=== PATIENT | male | born 1990 | race Caucasian/White ===

== ENCOUNTER 2021-03-11 08:01 | Emergency (ER) | payer OTHER, SELFPAY ==
[2021-03-11 08:22] VITALS: BP 143/85; PULSE 115; RESP 16; TEMP 37.1; O2SAT 100; BMI 23.3
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
[2021-03-11] MEDS: Lidocaine/Epineph/Tetracaine 3 ML GEL.PF.APP TOPICAL (08:36)
--- NOTE | 2021-03-11 09:16 | PC.NURSE ---
Dr. Rivas at bedside suturing laceration. Pt denies pain/discomfort at this time.
== END 2021-03-11 09:26 | disposition home or self-care (01) ==
PROVIDERS: Emergency Provider Emergency Medicine
DX: S01.411A Laceration without foreign body of right cheek and temporomandibular area, initial encounter (principal); S00.81XA Abrasion of other part of head, initial encounter; S09.90XA Unspecified injury of head, initial encounter; Y04.2XXA Assault by strike against or bumped into by another person, initial encounter; Y93.9 Activity, unspecified; Y92.019 Unspecified place in single-family (private) house as the place of occurrence of the external cause; Y99.9 Unspecified external cause status
CPT/HCPCS: 12011; 99284

== ENCOUNTER 2021-07-28 15:52 | Inpatient (IN) | payer OTHER, SELFPAY ==
[2021-07-28] VITALS (8 sets, daily range): BP systolic 109–146; BP diastolic 57–104; PULSE 101–163; RESP 14–36; TEMP 36.4–39.2; O2SAT 95–98; BMI 24.0
--- NOTE | ~2021-07-28 | XR_ITS ---
EXAMINATION: XR CHEST CLINICAL INFORMATION: Chest pain, rule out aspiration pneumonia. COMPARISON: 10/07/2019 chest radiographs. TECHNIQUE: Frontal view of the chest was obtained. FINDINGS: Diffuse hazy opacification and patchy opacities are seen in the left lung. The right lung is clear. The heart and mediastinal structures are unremarkable. No significant midline shift is seen. XR/XR chest 1V IMPRESSION: Generalized hazy and patchy opacities in the left lung suggesting an infectious/inflammatory process.
--- NOTE | ~2021-07-28 | CT_ITS ---
EXAMINATION: CT HEAD WITHOUT CONTRAST CLINICAL INFORMATION: Altered mental status, agitation. COMPARISON: None TECHNIQUE: Contiguous axial imaging was performed from the skull base to vertex without intravenous administration of contrast. This CT examination was performed using dose optimization techniques as appropriate, variously including the following: *Automated exposure control *Adjustment of mA and/or kV according to patient size (this includes techniques or standardized protocols for targeted exams where dose is matched to indication/reason for exam; i.e. extremities or head) *Use of iterative reconstruction technique DLP: 727 mGy-cm FINDINGS: Examination is limited by motion. There is no evidence of acute intracranial hemorrhage or territorial infarction. No abnormal mass effect or midline shift is seen. Kelly to white matter differentiation is well preserved. No extra-axial fluid collections are identified. There is a 1.4 cm extra-axial hyperdensity anterior to the left cerebellum on image 27:3 which could be artifactual and related with volume averaging from motion, although a meningioma is not entirely excluded. The ventricles are normal in size. The osseous structures and soft tissues are normal. Large mucous retention cyst in the left maxillary sinus. Remaining of the paranasal sinuses and mastoids are clear. CT/CT head/brain wo con IMPRESSION: No acute intracranial pathology. Questionable meningioma in the left posterior fossa, although examination is significantly degraded by motion and this could represent volume averaging. Consider further evaluation with a MR of the brain in a nonemergent setting.
[2021-07-28] MEDS: Ketamine HCl 500 MG/5 ML VIAL 250 MG IM ×2 (16:11→16:25)
[2021-07-28] MEDS: LORazepam 2 MG/ML VIAL IM ×2 (16:17→16:45)
--- NOTE | 2021-07-28 16:22 | ECG_ITS ---
Test Reason : OVERDOSE Blood Pressure : / mmHG Vent. Rate : 145 BPM Atrial Rate : 145 BPM P-R Int : 142 ms QRS Dur : 090 ms QT Int : 262 ms P-R-T Axes : 076 075 009 degrees QTc Int : 406 ms Sinus tachycardia Possible Left atrial enlargement ST & T wave abnormality, consider inferior ischemia Abnormal ECG No previous ECGs available Referred By: Jose Zamorano Electronically Signed By:NITISH MARINO MD
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
[2021-07-28] MEDS: Haloperidol Lactate 5 MG/ML VIAL IM (16:32)
--- NOTE | 2021-07-28 16:36 | PC.NURSE ---
Pt extremely restless and anxious and unable to sit still in bed. Pt is pale and diaphoretic. Pt very tangential with his speech. With security, attempted to get the patient settled and redirected. However, as soon as they left the room, pt contorted his body and flung himself off and under the bed. Pt has a small abrasion noted on left upper extremity. Security immediately brought back to bedside for physical restraints. Pt placed in restraints and pt has been medicated with multiple IM medications. Pt is on cardiac monitoring and is tachycardic to 150. IV established in right hand
[2021-07-28] MEDS: 0.9 % Sodium Chloride 1,000 ML 999 ML IV ×3 (16:42→19:35)
--- NOTE | 2021-07-28 16:59 | PC.NURSE ---
Pt becoming increasingly more sedated, but remains in the restraints at this time. EtCO2 = 34. Pt placed on oxygen via NC at 2lpm for noted spo2 of 91% and it immediately improved to 96%. Pt has fluids infusing. Pt is under constant observation.
[2021-07-28 17:08] LABS: MANUAL DIFF FLAG NO
[2021-07-28 17:09] LABS: Basophils Percent Auto 0.2 % (0-2); Eosinophils Absolute Auto 0.1 X10*3/uL (0.0-0.4); Eosinophils Percent Auto 0.8 % (0-4); Hematocrit 38.2 % (42-52); Hemoglobin 12.9 g/dl (14.0-18.0); Imm Gran Abs Auto 0.03 X10*3/uL (0.00-0.03); Imm Gran Pct Auto 0.3 % (0.0-0.4); Lymphocytes Absolute Auto 2.1 X10*3/uL (1.2-4.9); Lymphocytes Percent Auto 23.3 % (20-40); Mean Corpuscular HGB Conc 33.8 g/dl (31.0-36.0); Mean Corpuscular Hemoglobin 29.1 pg (27.0-33.0); Mean Corpuscular Volume 86.2 fL (80-98); Mean Platelet Volume 9.5 fL (9.4-12.4); Monocytes Absolute Auto 0.6 X10*3/uL (0.1-1.2); Monocytes Percent Auto 6.6 % (2-11); Neutrophils Percent Auto 68.8 % (45-73); Platelet Count 251 X10*3/uL (160-400); Red Blood Count 4.43 X10*6/uL (4.60-5.80); Red Cell Distribution Width 13.3 % (11.0-16.0); White Blood Count 8.8 X10*3/uL (4.8-10.8)
[2021-07-28 17:29] LABS: Alanine Aminotransferase 14 U/L (0-40); Albumin Level 4.6 g/dL (3.5-5.0); Alkaline Phosphatase 83 U/L (39-117); Anion Gap 26 (12-20); Aspartate Amino Transferase 26 U/L (5-37); Bilirubin Total 0.4 mg/dL (0.0-1.0); Blood Urea Nitrogen 14 mg/dL (9-16); Calcium 9.2 mg/dL (8.4-10.2); Carbon Dioxide 13 mmol/L (22-29); Chloride 101 mmol/L (96-108); Estimated Glomerular Filt Rate 51; Glucose Random 287 mg/dL (60-115); Potassium 3.9 mmol/L (3.3-5.1); Sodium 136 mmol/L (135-145); Total Protein 7.6 g/dL (6.5-8.0); Troponin-I High Sensitivity < 3.5 ng/L (<3.5-35.0)
[2021-07-28 18:39] LABS: Magnesium 2.5 mg/dL (1.6-2.6)
[2021-07-28 18:40] LABS: VBG Base Excess -1.4 mmol/L; VBG HCO3 23 mmol/L (22-26); VBG pCO2 37 mmHg; VBG pH 7.39 (7.32-7.43); VBG pO2 114 mmHg
[2021-07-28 18:43] LABS: Venous Blood Gas Refer to POC result
[2021-07-28 18:50] LABS: Acetone, serum QL Negative (Negative)
[2021-07-28 18:51] LABS: Ethanol < 10 mg/dL
[2021-07-28 18:52] LABS: COVID-19 Test Negative (Negative)
--- NOTE | 2021-07-28 18:53 | PHA.MEDREC ---
Pharmacy Consult ? Medication Reconciliation Pharmacy has completed the medication reconciliation.Unable to get any information regarding home meds from the patient. Contacted patients mother and she does not think he is taking any prescribed medications.
[2021-07-28 18:54] LABS: Acetaminophen LAB < 1 mcg/mL (<30); Amphetamine Screen Urine POSITIVE (Not Detect); Barbiturates, Urine Not Detected (Not Detect); Benzodiazepines Screen Urine Not Detected (Not Detect); Cannabinoid Screen Urine POSITIVE (Not Detect); Cocaine Screen Urine Not Detected (Not Detect); Fentanyl, urine Not Detected (Not Detect); Opiate Screen Urine Not Detected (Not Detect); Phencyclidine Screen Urine POSITIVE (Not Detect); Salicylate < 5.0 mg/dL (15-30)
--- NOTE | 2021-07-28 19:13 | PC.NURSE ---
Patient with easily arousable with incomprehensible speech. Remains in 2 point restraints at his time, was initially trying to get out of bed when this RN entered room. 1:1 present with patient.
[2021-07-28] MEDS: LORazepam 2 MG/ML VIAL IVPUSH (19:30)
--- NOTE | 2021-07-28 19:32 | PC.NURSE ---
Medicated with ativan to try and allow patient to cooperate for CT.
--- NOTE | 2021-07-28 19:53 | PC.NURSE ---
Patient unable to go to CT. flailing legs in air, attempting to pull out catheter at this time. 1:1 maintained.
[2021-07-28] MEDS: 0.9 % Sodium Chloride 1,000 ML 250 ML IVCONT (22:47)
[2021-07-28] MEDS: Acetaminophen Supp 650 MG SUPP.RECT PR (23:31)
--- NOTE | 2021-07-28 23:34 | PM.IMHP ---
History of Present Illness Date of Service: 07/28/21 Chief Complaint: Pattern nausea 31-year-old male with a past medical history of polysubstance abuse, PCP abuse presented to the hospital with a chief complaint of altered mental status. Most of the history provided by the patient's family. Reportedly patient has been having paranoia; and confusion. Mentioned that he uses PCP. Denies patient having any suicidal or homicidal ideation. Review of all other systems is negative except mentioned above ER course: Per ER team patient on presentation was agitated; given ketamine, Ativan, Haldol; subsequently patient developed fever; noted to be tachycardic, hypotensive; noted to have mild TORSTEN and rhabdomyolysis; given IV fluids. Chest x-ray showed pneumonia. Concern for aspiration. Given vancomycin and Zosyn. Admitted for further management. [facility] Medical History No known health problems Pertinent family history: Reviewed Social History (Updated 03/11/21 @ 08:34 by Caitlin Dillard DO) Patient Tobacco Use Status: Never used Tobacco Use of substances other than those prescribed or required for medical reasons: Yes Substance Use Type: Marijuana Advance Directives: No Advance Directives Information Provided: No Meds Allergies Allergy/AdvReac Type Severity Reaction Status Date / Time No Known Allergies Allergy Verified 03/11/21 08:25 Active Medications: Current Medications Albuterol/Ipratropium (Albuterol/Iprat 2.5/0.5mg 3 Ml Ampul.Neb) 3 ml INHALE RQ4H PRN PRN Reason: Shortness of Breath/Wheezing Vancomycin HCl 750 mg/ Sodium (Chloride) 265 mls @ 265 mls/hr IV ONCE ONE Stop: 07/29/21 00:28 Pharmacy Consult (Consult Rx Perform Med Rec) 1 each MISCELLANE ONCE PRN PRN Reason: Consult order Pharmacy Consult (Consult Rx Vancomycin Dosing) 1 each MISCELLANE DAILY PRN PRN Reason: Consult order Home Medications Medication Instructions Recorded Confirmed Last Taken Type No Known Home Meds 07/28/21 07/28/21 Unknown History Physical Exam Vital Signs and Narrative: Vital Signs: Last Vital Signs Temp 102.5 F H 07/28/21 23:25 Pulse 137 H 07/28/21 23:25 Resp 34 H 07/28/21 23:25 BP 146/104 H 07/28/21 23:25 Pulse Ox 98 07/28/21 23:25 Body Mass Index 24.0 Gen: Appears be in no acute distress HEENT: NCAT, Moist mucosa. Pulmonary: Course breath sounds, fair air entry CVS: Normal S1-S2 Abdomen: BS+, Soft, Nontender Extremities: Warm well perfused Neuro: Alert and awake. Results Labs CBC and Chem 7: 07/28/21 17:04 07/28/21 17:04 Labs: Laboratory Results - last 24 hr 07/28/21 07/28/21 07/28/21 17:04 17:04 17:04 MCV 86.2 MCH 29.1 MCHC 33.8 RDW 13.3 Plt Count 251 MPV 9.5 Immature Gran % (Auto) 0.3 Neut % (Auto) 68.8 Lymph % (Auto) 23.3 [place] % (Auto) 6.6 Eos % (Auto) 0.8 Baso % (Auto) 0.2 Lymph # (Auto) 2.1 [place] # (Auto) 0.6 Eos # (Auto) 0.1 Baso # (Auto) 0.0 Abs Immat Gran (auto) 0.03 Absolute Neuts (auto) 6.0 Absolute Nucleated RBC 0.000 Nucleated RBC % (auto) 0.0 VBG pH VBG pCO2 VBG pO2 VBG HCO3 VBG O2 Saturation VBG Base Excess Anion Gap 26 H Estim Creat Clear Calc 56.0 Estimated GFR 51 Random Glucose 287 H Calcium 9.2 Magnesium 2.5 Total Bilirubin 0.4 AST 26 ALT 14 Alkaline Phosphatase 83 Total Creatine Kinase 803 H Troponin I High Sens < 3.5 Total Protein 7.6 Albumin 4.6 Salicylates Urine Opiates Screen Urine Fentanyl Screen Acetaminophen Ur Barbiturates Screen Ur Phencyclidine Scrn Ur Amphetamines Screen U Benzodiazepines Scrn Urine Cocaine Screen U Marijuana (THC) Screen Ethyl Alcohol Acetone, Qual COVID-19 ([facility]) COVID-19 Clin Com 07/28/21 07/28/21 07/28/21 18:24 18:24 18:24 MCV MCH MCHC RDW Plt Count MPV Immature Gran % (Auto) Neut % (Auto) Lymph % (Auto) [place] % (Auto) Eos % (Auto) Baso % (Auto) Lymph # (Auto) [place] # (Auto) Eos # (Auto) Baso # (Auto) Abs Immat Gran (auto) Absolute Neuts (auto) Absolute Nucleated RBC Nucleated RBC % (auto) VBG pH VBG pCO2 VBG pO2 VBG HCO3 VBG O2 Saturation VBG Base Excess Anion Gap Estim Creat Clear Calc Estimated GFR Random Glucose Calcium Magnesium Total Bilirubin AST ALT Alkaline Phosphatase Total Creatine Kinase Troponin I High Sens Total Protein Albumin Salicylates < 5.0 L Urine Opiates Screen Not Detected Urine Fentanyl Screen Not Detected Acetaminophen < 1 Ur Barbiturates Screen Not Detected Ur Phencyclidine Scrn POSITIVE H Ur Amphetamines Screen POSITIVE H U Benzodiazepines Scrn Not Detected Urine Cocaine Screen Not Detected U Marijuana (THC) Screen POSITIVE H Ethyl Alcohol < 10 Acetone, Qual Negative COVID-19 ([facility]) COVID-[employer]amer (TMG) 07/28/21 07/28/21 18:25 18:34 MCV MCH MCHC RDW Plt Count MPV Immature Gran % (Auto) Neut % (Auto) Lymph % (Auto) [place] % (Auto) Eos % (Auto) Baso % (Auto) Lymph # (Auto) [place] # (Auto) Eos # (Auto) Baso # (Auto) Abs Immat Gran (auto) Absolute Neuts (auto) Absolute Nucleated RBC Nucleated RBC % (auto) VBG pH 7.39 VBG pCO2 37 VBG pO2 114 VBG HCO3 23 VBG O2 Saturation 99.0 VBG Base Excess -1.4 Anion Gap Estim Creat Clear Calc Estimated GFR Random Glucose Calcium Magnesium Total Bilirubin AST ALT Alkaline Phosphatase Total Creatine Kinase Troponin I High Sens Total Protein Albumin Salicylates Urine Opiates Screen Urine Fentanyl Screen Acetaminophen Ur Barbiturates Screen Ur Phencyclidine Scrn Ur Amphetamines Screen U Benzodiazepines Scrn Urine Cocaine Screen U Marijuana (THC) Screen Ethyl Alcohol Acetone, Qual COVID-19 ([facility]) Negative COVID-[employer]Mobile[employer]amer (TMG) See Note Imaging Radiologist's Impressions: Impressions Head CT 07/28/21 18:00 IMPRESSION: No acute intracranial pathology. Questionable meningioma in the left posterior fossa, although examination is significantly degraded by motion and this could represent volume averaging. Consider further evaluation with a MR of the brain in a nonemergent setting. Chest X-Ray 07/28/21 22:38 IMPRESSION: Generalized hazy and patchy opacities in the left lung suggesting an infectious/inflammatory process. Assessment and Plan (1) Altered mental status: Status: Acute (2) Substance abuse: Status: Acute (3) Acute kidney injury: Status: Acute (4) Tachycardia: Status: Acute (5) Rhabdomyolysis: Status: Acute (6) Pneumonia: Qualifiers: Laterality: left Lung location: unspecified part of lung Pneumonia type: due to unspecified organism Qualified Code(s): J18.9 - Pneumonia, unspecified organism Status: Acute (7) PCP intoxication: Qualifiers: Complication of substance-induced condition: with delirium Qualified Code(s): F16.921 - Hallucinogen use, unspecified with intoxication with delirium Status: Acute (8) Metabolic acidosis: Status: Acute 31-year-old male with a past medical history of polysubstance abuse, PCP abuse presented to the hospital with a chief complaint of altered mental status. Delirium: In the setting of substance abuse/PCP intoxication. Patient was initially agitated and throwing out of the bed in the ER, received ketamine, Haldol, Ativan-subsequently calmed down. Will consult Psychiatry. Polysubstance abuse: Addiction Medicine consult. Patient's U tox positive for phencyclidine, amphetamines, cannabis Pneumonia: Concern for aspiration. Continue vancomycin and Zosyn. Tachycardia: In the setting of substance abuse/pneumonia/agitation. Monitor on telemetry. TORSTEN: Gentle IV fluids. Monitor renal function. Rhabdomyolysis: Patient on IV fluids Metabolic acidosis: Lactate pending. Send UA for ketones. Repeat BMP pending after IV hydration. DVT prophylaxis: SCD boots Code status: Full code. Discussed with the patient's family at bedside. Quality Stroke Does the patient have a stroke diagnosis?: No VTE Prior VTE?: No VTE Risk Level:: Medical - low VTE Device Contraindication: N/A - Device Ordered VTE Drug Contraindication: Treatment Not Indicated
[2021-07-28] MEDS: Piperacillin Sodium/Tazobactam 3.375 GM in 0.9 % Sodium Chloride 50 ML IV (23:36)
[2021-07-28 23:48] LABS: Lactic Acid 1.8 mmol/L (0.5-2.0)
[2021-07-29] VITALS (9 sets, daily range): BP systolic 92–122; BP diastolic 57–71; PULSE 76–121; RESP 15–30; TEMP 37.1–39.1; O2SAT 95–100
[2021-07-29 00:11] LABS: Anion Gap 13 (12-20); Blood Urea Nitrogen 10 mg/dL (9-16); Calcium 8.1 mg/dL (8.4-10.2); Carbon Dioxide 20 mmol/L (22-29); Chloride 108 mmol/L (96-108); Creatinine Clr Calc Pharmacy 97.4; Estimated Glomerular Filt Rate > 60; Glucose Random 87 mg/dL (60-115); Potassium 4.3 mmol/L (3.3-5.1); Sodium 137 mmol/L (135-145)
[2021-07-29] MEDS: vancomycin HCL 1,000 MG in 0.9 % Sodium Chloride 250 ML 270 MG IV (00:48)
[2021-07-29 01:02] LABS: Appearance Urine CLEAR; Color Urine YELLOW; Glucose Urine UA NEG (NEG); Leukocyte Esterase Urine NEG (NEG); Nitrite Urine NEG (NEG); Urine Blood 2+ (NEG); Urine Ketones NEG (NEG); Urine Protein NEG (NEG-TRACE)
[2021-07-29 02:15] LABS: Bacteria Urine 1+ /LPF; Squamous Epithelial Cell Urine 1+ /LPF
[2021-07-29] MEDS: 0.9 % Sodium Chloride 1,000 ML 100 ML IVCONT ×3 (03:19→18:09)
--- NOTE | 2021-07-29 03:21 | PC.NURSE ---
Report taken from [place], this RN resuming . Pt remains asleep in bed at this time, stirs slightly with movement. VSS. IVF infusing per MAR @ 100 ml/hr. 1250 ml of UO drained from kurtz bag and documented. Tele monitor in place for pt safety. SZ pads in place. lights dim for comfort. Continue to monitor.
[2021-07-29] MEDS: Piperacillin Sodium/Tazobactam 3.375 GM in 0.9 % Sodium Chloride 50 ML IV ×4 (05:07→23:01)
[2021-07-29 07:27] LABS: MANUAL DIFF FLAG NO
[2021-07-29 07:29] LABS: Basophils Percent Auto 0.3 % (0-2); Eosinophils Absolute Auto 0.1 X10*3/uL (0.0-0.4); Eosinophils Percent Auto 0.7 % (0-4); Hematocrit 36.2 % (42-52); Hemoglobin 12.4 g/dl (14.0-18.0); Imm Gran Abs Auto 0.04 X10*3/uL (0.00-0.03); Imm Gran Pct Auto 0.3 % (0.0-0.4); Lymphocytes Absolute Auto 3.1 X10*3/uL (1.2-4.9); Lymphocytes Percent Auto 23.2 % (20-40); Mean Corpuscular HGB Conc 34.3 g/dl (31.0-36.0); Mean Corpuscular Hemoglobin 29.7 pg (27.0-33.0); Mean Corpuscular Volume 86.6 fL (80-98); Mean Platelet Volume 9.4 fL (9.4-12.4); Monocytes Absolute Auto 0.6 X10*3/uL (0.1-1.2); Monocytes Percent Auto 4.8 % (2-11); Neutrophils Absolute Auto 9.3 X10*3/uL (2.0-8.3); Neutrophils Percent Auto 70.7 % (45-73); Platelet Count 200 X10*3/uL (160-400); Red Blood Count 4.18 X10*6/uL (4.60-5.80); Red Cell Distribution Width 13.5 % (11.0-16.0); White Blood Count 13.2 X10*3/uL (4.8-10.8)
[2021-07-29 08:08] LABS: Anion Gap 13 (12-20); Blood Urea Nitrogen 7 mg/dL (9-16); Calcium 8.1 mg/dL (8.4-10.2); Carbon Dioxide 20 mmol/L (22-29); Chloride 110 mmol/L (96-108); Creatinine Clr Calc Pharmacy 106.6; Estimated Glomerular Filt Rate > 60; Glucose Random 77 mg/dL (60-115); Potassium 4.4 mmol/L (3.3-5.1); Sodium 139 mmol/L (135-145)
--- NOTE | 2021-07-29 08:19 | PHA.PROG ---
Admission Date/Time: July 28, 2021 23:31 Indication: Resp Infection Weight in k.503 kg Adjusted body weight in K.92 [place] body weight in K.2 Obesity Dosing Indication % IBW: N/A Serum Creatinine - Last 168 Hours 07/28/21 07/28/21 07/29/21 17:04 23:22 07:10 Creatinine 1.60 H 0.92 0.84 Estimated CrCl and GFR - Last 168 Hours 07/28/21 07/28/21 07/29/21 17:04 23:22 07:10 Estim Creat Clear Calc 56.0 97.4 106.6 Estimated GFR 51 > 60 > 60 Vancomycin Loading Dose: N/A - will given first 2 dose of vanco 8 hours apart instead of 12 to create a LD so concentration level increase faster Current Vancomycin Dosing Regimen: 1000 mg Q12H Date and Time for next Vancomycin Level to be drawn: 07/30 @ 0800 Pharmacist Comments on Vancomycin Plan: First dose 1000 mg given at 0048. Start vanco 1000 mg Q12H om 07/29 @ 0900. Expected AUC 461 with trough of 13.3. Trough will be drawn prior to 4th dose on 07/30 @ 0800 Pharmacy to monitor SCr daily, and adjust if appropriate. Jessenia Russo, Fernando Vancomycin dosing will take advantage of [employer] as a clinical decision support tool that uses Bayesian modeling to calculate individual patient's pharmacokinetic parameters and forecast the patient's drug concentration time course with the target goal AUC 24 range of 400 - 600 mg/L/hr.
[2021-07-29 08:58] LABS: Procalcitonin 0.25 ng/mL
--- NOTE | 2021-07-29 09:35 | MHC.CM.PN ---
pt lives c his parents in their home. he is independent in his care. pt would benefit from a care team consult prior to dc. pt denies the need for vna at dc. dc plan is to return home no svcs. vs detox / help for polysubstance abuse . pt will have family transport at dc . cm to cont. to follow.
[2021-07-29 15:36] LABS: Adenovirus PCR Not Detected (Not Detect.); Bordetella parapertussis PCR Not Detected (Not Detect.); Bordetella pertussis PCR Not Detected (Not Detect.); Chlamydia pneumoniae PCR Not Detected (Not Detect.); Coronavirus 229E PCR Not Detected (Not Detect.); Coronavirus HKU1 PCR Not Detected (Not Detect.); Coronavirus NL63 PCR Not Detected (Not Detect.); Coronavirus OC43 PCR Not Detected (Not Detect.); Human metapneumovirus PCR Not Detected (Not Detect.); Influenza A PCR Not Detected (Not Detect.); Influenza B PCR Not Detected (Not Detect.); Mycoplasma pneumoniae PCR Not Detected (Not Detect.); Parainfluenza 1 PCR Not Detected (Not Detect.); Parainfluenza 2 PCR Not Detected (Not Detect.); Parainfluenza 3 PCR Not Detected (Not Detect.); Parainfluenza 4 PCR Not Detected (Not Detect.); RSV PCR Not Detected (Not Detect.); Rhino/Enterovirus PCR Not Detected (Not Detect.); SARS-CoV-2 PCR Not Detected (Not Detect.)
--- NOTE | 2021-07-29 15:41 | P.PNIM_ITS ---
Subjective Subjective Date of Service: 07/29/21 Interval History: Pt somnolent after ketamine, haloperidol, lorazepam; unable to obtain ROS CPK increasing Review of Systems Review of Systems: Yes Unobtainable due to mental status Physical Exam Vital Signs: Vital Signs: Last Vital Signs Temp 99.9 F 07/29/21 03:20 Pulse 80 07/29/21 15:18 Resp 19 07/29/21 15:18 BP 118/64 07/29/21 15:18 Pulse Ox 100 07/29/21 15:18 Body Mass Index 24.0 Gen: somnolent but arousable HEENT: sclera anicteric, moist mucus membranes Neck: supple Lungs: diminished bilaterally Heart: regular rate and rhythm, no murmurs Abd: soft, non-tender, non-distended Ext: no edema Skin: warm/well-perfused Neuro: uncooperative with exam Psych: impaired insight Objective Data Active Medications Acetaminophen (Acetaminophen 325 Mg Tablet) 650 mg PO Q6H PRN PRN Reason: Pain, Mild (Pain Scale 1-3) Albuterol/Ipratropium (Albuterol/Iprat 2.5/0.5mg 3 Ml Ampul.Neb) 3 ml INHALE RQ4H PRN PRN Reason: Shortness of Breath/Wheezing Piperacillin Sod/Tazobactam (Sod 3.375 gm/ Sodium Chloride) 50 mls @ 100 mls/hr IV Q6H [facility] Last Infusion: 07/29/21 12:36 Dose: 0 mls/hr Documented by: KASANDRA Sodium Chloride (Ns) 1,000 mls @ 150 mls/hr IVCONT .Q6H40M [facility] Last Admin: 07/29/21 08:54 Dose: 100 mls/hr Documented by: KASANDRA Melatonin (Melatonin 3 Mg Tablet) 6 mg PO BEDTIME PRN PRN Reason: Insomnia Pharmacy Consult (Consult Rx Perform Med Rec) 1 each MISCELLANE ONCE PRN PRN Reason: Consult order Pharmacy Consult (Consult Rx Vancomycin Dosing) 1 each MISCELLANE DAILY PRN PRN Reason: Consult order Senna (Sennosides 8.6 Mg Tablet) 17.2 mg PO BEDTIME PRN PRN Reason: Constipation Sodium Chloride (0.9 % Sodium Chloride Flush 3 Ml Syringe) 3 ml IVFLUSH QSHIFT [facility] Last Admin: 07/29/21 08:56 Dose: Not Given Documented by: KASANDRA Non-Admin Reason: IV Running Labs CBC & Chem 7: 07/29/21 07:10 07/29/21 07:10 Labs: Laboratory Results - last 24 hr 07/28/21 07/28/21 07/28/21 17:04 17:04 17:04 MCV 86.2 MCH 29.1 MCHC 33.8 RDW 13.3 Plt Count 251 MPV 9.5 Immature Gran % (Auto) 0.3 Neut % (Auto) 68.8 Lymph % (Auto) 23.3 [place] % (Auto) 6.6 Eos % (Auto) 0.8 Baso % (Auto) 0.2 Lymph # (Auto) 2.1 [place] # (Auto) 0.6 Eos # (Auto) 0.1 Baso # (Auto) 0.0 Abs Immat Gran (auto) 0.03 Absolute Neuts (auto) 6.0 Absolute Nucleated RBC 0.000 Nucleated RBC % (auto) 0.0 VBG pH VBG pCO2 VBG pO2 VBG HCO3 VBG O2 Saturation VBG Base Excess Anion Gap 26 H Estim Creat Clear Calc 56.0 Estimated GFR 51 Random Glucose 287 H Lactic Acid Calcium 9.2 Magnesium 2.5 Total Bilirubin 0.4 AST 26 ALT 14 Alkaline Phosphatase 83 Total Creatine Kinase 803 H Troponin I High Sens < 3.5 Total Protein 7.6 Albumin 4.6 Procalcitonin Urine Color Urine Appearance Urine pH Ur Specific [place] Urine Protein Urine Glucose (UA) Urine Ketones Urine Blood Urine Nitrite Ur Leukocyte Esterase Urine RBC Urine WBC Ur Squamous Epith Cells Urine Bacteria Salicylates Urine Opiates Screen Urine Fentanyl Screen Acetaminophen Ur Barbiturates Screen Ur Phencyclidine Scrn Ur Amphetamines Screen U Benzodiazepines Scrn Urine Cocaine Screen U Marijuana (THC) Screen Ethyl Alcohol Acetone, Qual COVID-19 ([facility]) COVID-19 Clin Com 07/28/21 07/28/21 07/28/21 18:24 18:24 18:24 MCV MCH MCHC RDW Plt Count MPV Immature Gran % (Auto) Neut % (Auto) Lymph % (Auto) [place] % (Auto) Eos % (Auto) Baso % (Auto) Lymph # (Auto) [place] # (Auto) Eos # (Auto) Baso # (Auto) Abs Immat Gran (auto) Absolute Neuts (auto) Absolute Nucleated RBC Nucleated RBC % (auto) VBG pH VBG pCO2 VBG pO2 VBG HCO3 VBG O2 Saturation VBG Base Excess Anion Gap Estim Creat Clear Calc Estimated GFR Random Glucose Lactic Acid Calcium Magnesium Total Bilirubin AST ALT Alkaline Phosphatase Total Creatine Kinase Troponin I High Sens Total Protein Albumin Procalcitonin Urine Color Urine Appearance Urine pH Ur Specific [place] Urine Protein Urine Glucose (UA) Urine Ketones Urine Blood Urine Nitrite Ur Leukocyte Esterase Urine RBC Urine WBC Ur Squamous Epith Cells Urine Bacteria Salicylates < 5.0 L Urine Opiates Screen Not Detected Urine Fentanyl Screen Not Detected Acetaminophen < 1 Ur Barbiturates Screen Not Detected Ur Phencyclidine Scrn POSITIVE H Ur Amphetamines Screen POSITIVE H U Benzodiazepines Scrn Not Detected Urine Cocaine Screen Not Detected U Marijuana (THC) Screen POSITIVE H Ethyl Alcohol < 10 Acetone, Qual Negative COVID-19 ([facility]) COVID-19 [employer] 07/28/21 07/28/21 07/28/21 18:25 18:34 23:22 MCV MCH MCHC RDW Plt Count MPV Immature Gran % (Auto) Neut % (Auto) Lymph % (Auto) [place] % (Auto) Eos % (Auto) Baso % (Auto) Lymph # (Auto) [place] # (Auto) Eos # (Auto) Baso # (Auto) Abs Immat Gran (auto) Absolute Neuts (auto) Absolute Nucleated RBC Nucleated RBC % (auto) VBG pH 7.39 VBG pCO2 37 VBG pO2 114 VBG HCO3 23 VBG O2 Saturation 99.0 VBG Base Excess -1.4 Anion Gap 13 Estim Creat Clear Calc 97.4 Estimated GFR > 60 Random Glucose 87 D Lactic Acid Calcium 8.1 L D Magnesium Total Bilirubin AST ALT Alkaline Phosphatase Total Creatine Kinase 7692 H D Troponin I High Sens Total Protein Albumin Procalcitonin Urine Color Urine Appearance Urine pH Ur Specific [place] Urine Protein Urine Glucose (UA) Urine Ketones Urine Blood Urine Nitrite Ur Leukocyte Esterase Urine RBC Urine WBC Ur Squamous Epith Cells Urine Bacteria Salicylates Urine Opiates Screen Urine Fentanyl Screen Acetaminophen Ur Barbiturates Screen Ur Phencyclidine Scrn Ur Amphetamines Screen U Benzodiazepines Scrn Urine Cocaine Screen U Marijuana (THC) Screen Ethyl Alcohol Acetone, Qual COVID-19 ([facility]) Negative COVID-19 [employer] See Note 07/28/21 07/29/21 07/29/21 23:22 00:49 07:10 MCV 86.6 MCH 29.7 MCHC 34.3 RDW 13.5 Plt Count 200 MPV 9.4 Immature Gran % (Auto) 0.3 Neut % (Auto) 70.7 Lymph % (Auto) 23.2 [place] % (Auto) 4.8 Eos % (Auto) 0.7 Baso % (Auto) 0.3 Lymph # (Auto) 3.1 [place] # (Auto) 0.6 Eos # (Auto) 0.1 Baso # (Auto) 0.0 Abs Immat Gran (auto) 0.04 H Absolute Neuts (auto) 9.3 H Absolute Nucleated RBC 0.000 Nucleated RBC % (auto) 0.0 VBG pH VBG pCO2 VBG pO2 VBG HCO3 VBG O2 Saturation VBG Base Excess Anion Gap Estim Creat Clear Calc Estimated GFR Random Glucose Lactic Acid 1.8 Calcium Magnesium Total Bilirubin AST ALT Alkaline Phosphatase Total Creatine Kinase Troponin I High Sens Total Protein Albumin Procalcitonin Urine Color YELLOW Urine Appearance CLEAR Urine pH 6.0 Ur Specific [place] 1.020 Urine Protein NEG Urine Glucose (UA) NEG Urine Ketones NEG Urine Blood 2+ H Urine Nitrite NEG Ur Leukocyte Esterase NEG Urine RBC 10-14 H Urine WBC 1-4 Ur Squamous Epith Cells 1+ Urine Bacteria 1+ Salicylates Urine Opiates Screen Urine Fentanyl Screen Acetaminophen Ur Barbiturates Screen Ur Phencyclidine Scrn Ur Amphetamines Screen U Benzodiazepines Scrn Urine Cocaine Screen U Marijuana (THC) Screen Ethyl Alcohol Acetone, Qual COVID-19 ([facility]) COVID-19 Clin Com 07/29/21 07/29/21 07:10 07:10 MCV MCH MCHC RDW Plt Count MPV Immature Gran % (Auto) Neut % (Auto) Lymph % (Auto) [place] % (Auto) Eos % (Auto) Baso % (Auto) Lymph # (Auto) [place] # (Auto) Eos # (Auto) Baso # (Auto) Abs Immat Gran (auto) Absolute Neuts (auto) Absolute Nucleated RBC Nucleated RBC % (auto) VBG pH VBG pCO2 VBG pO2 VBG HCO3 VBG O2 Saturation VBG Base Excess Anion Gap 13 Estim Creat Clear Calc 106.6 Estimated GFR > 60 Random Glucose 77 Lactic Acid Calcium 8.1 L Magnesium Total Bilirubin AST ALT Alkaline Phosphatase Total Creatine Kinase 9916 H Troponin I High Sens Total Protein Albumin Procalcitonin 0.25 Urine Color Urine Appearance Urine pH Ur Specific [place] Urine Protein Urine Glucose (UA) Urine Ketones Urine Blood Urine Nitrite Ur Leukocyte Esterase Urine RBC Urine WBC Ur Squamous Epith Cells Urine Bacteria Salicylates Urine Opiates Screen Urine Fentanyl Screen Acetaminophen Ur Barbiturates Screen Ur Phencyclidine Scrn Ur Amphetamines Screen U Benzodiazepines Scrn Urine Cocaine Screen U Marijuana (THC) Screen Ethyl Alcohol Acetone, Qual COVID-19 ([facility]) COVID-19 Clin Com Assessment and Plan (1) Altered mental status: Status: Acute (2) Substance abuse: Status: Acute (3) Acute kidney injury: Status: Acute Assessment and Plan: hospital d#2 31yo M with PCP + methamphetamine intoxication admitted with agitated delirium and found to have rhabdomyolysis + pneumonia # rhabdomyolysis # TORSTEN - aggressive fluid hydration, Nephrology consult, trend CPK, SCr normalized # pneumonia - likely aspiration, d/c vancomycin as unlikely MRSA, follow BCx, trend PCT, check RVP # toxic metabolic encephalopathy # polysubstance abuse - due to substance abuse [PCP + methamphetamines] - Psychiatry + Addiction medicine consults - screen HBV/HCV/HIV # VTE ppx - SCDs Quality Stroke Does the patient have a stroke diagnosis?: No VTE Prior VTE?: No VTE Risk Level:: Medical - low VTE Device Contraindication: N/A - Device Ordered VTE Drug Contraindication: Treatment Not Indicated
[2021-07-29] MEDS: 0.9 % Sodium Chloride Flush 3 ML SYRINGE IVFLUSH (18:08)
[2021-07-29] MEDS: 0.9 % Sodium Chloride 1,000 ML 150 ML IVCONT (23:00)
[2021-07-30] VITALS: PULSE 75; RESP 16; O2SAT 97
[2021-07-30 04:00] VITALS: BP 101/57; PULSE 71; RESP 16; O2SAT 97
[2021-07-30] MEDS: Piperacillin Sodium/Tazobactam 3.375 GM in 0.9 % Sodium Chloride 50 ML IV (06:40)
[2021-07-30] MEDS: 0.9 % Sodium Chloride 1,000 ML 150 ML IVCONT (06:42)
[2021-07-30 08:24] LABS: MANUAL DIFF FLAG NO
[2021-07-30 08:34] LABS: Basophils Percent Auto 0.4 % (0-2); Eosinophils Absolute Auto 0.3 X10*3/uL (0.0-0.4); Eosinophils Percent Auto 3.4 % (0-4); Hematocrit 34.1 % (42-52); Hemoglobin 11.6 g/dl (14.0-18.0); Imm Gran Abs Auto 0.01 X10*3/uL (0.00-0.03); Imm Gran Pct Auto 0.1 % (0.0-0.4); Lymphocytes Absolute Auto 2.9 X10*3/uL (1.2-4.9); Lymphocytes Percent Auto 39.7 % (20-40); Mean Corpuscular Hemoglobin 29.3 pg (27.0-33.0); Mean Corpuscular Volume 86.1 fL (80-98); Mean Platelet Volume 9.4 fL (9.4-12.4); Monocytes Absolute Auto 0.5 X10*3/uL (0.1-1.2); Monocytes Percent Auto 7.1 % (2-11); Neutrophils Absolute Auto 3.6 X10*3/uL (2.0-8.3); Neutrophils Percent Auto 49.3 % (45-73); Platelet Count 213 X10*3/uL (160-400); Red Blood Count 3.96 X10*6/uL (4.60-5.80); Red Cell Distribution Width 13.5 % (11.0-16.0); White Blood Count 7.3 X10*3/uL (4.8-10.8)
[2021-07-30] MEDS: 0.9 % Sodium Chloride Flush 3 ML SYRINGE IVFLUSH (08:51)
[2021-07-30 09:01] LABS: Alanine Aminotransferase 27 U/L (0-40); Albumin Level 3.6 g/dL (3.5-5.0); Alkaline Phosphatase 64 U/L (39-117); Anion Gap 9 (12-20); Aspartate Amino Transferase 93 U/L (5-37); Bilirubin Total 0.5 mg/dL (0.0-1.0); Blood Urea Nitrogen 4 mg/dL (9-16); Calcium 8.6 mg/dL (8.4-10.2); Carbon Dioxide 28 mmol/L (22-29); Chloride 108 mmol/L (96-108); Creatinine Clr Calc Pharmacy 109.2; Estimated Glomerular Filt Rate > 60; Glucose Random 77 mg/dL (60-115); Potassium 4.1 mmol/L (3.3-5.1); Sodium 141 mmol/L (135-145)
--- NOTE | 2021-07-30 11:00 | HO.PM.IMPN ---
Subjective Subjective Date of Service: 07/30/21 Interval History: Much more awake. No complaints except for frequent urination; getting IV fluids. Review of Systems Review of Systems: Yes all other systems are reviewed and are negative Physical Exam Vital Signs: Vital Signs: Last Vital Signs Temp 98.8 F 07/29/21 23:32 Pulse 71 07/30/21 04:00 Resp 16 07/30/21 04:00 BP 101/57 L 07/30/21 04:00 Pulse Ox 97 07/30/21 04:00 Body Mass Index 24.0 Gen: awake, alert, NAD HEENT: sclera anicteric, moist mucus membranes Neck: supple Lungs: diminished bilaterally Heart: regular rate and rhythm, no murmurs Abd: soft, non-tender, non-distended Ext: no edema Skin: warm/well-perfused Neuro: no focal deficits Psych: normal affect Objective Data Active Medications Acetaminophen (Acetaminophen 325 Mg Tablet) 650 mg PO Q6H PRN PRN Reason: Pain, Mild (Pain Scale 1-3) Albuterol/Ipratropium (Albuterol/Iprat 2.5/0.5mg 3 Ml Ampul.Neb) 3 ml INHALE RQ4H PRN PRN Reason: Shortness of Breath/Wheezing Piperacillin Sod/Tazobactam (Sod 3.375 gm/ Sodium Chloride) 50 mls @ 100 mls/hr IV Q6H [facility] Last Infusion: 07/30/21 10:08 Dose: 0 mls/hr Documented by: CHAKA Sodium Chloride (Ns) 1,000 mls @ 150 mls/hr IVCONT .Q6H40M [facility] Last Admin: 07/30/21 06:42 Dose: 150 mls/hr Documented by: WINDY Melatonin (Melatonin 3 Mg Tablet) 6 mg PO BEDTIME PRN PRN Reason: Insomnia Pharmacy Consult (Consult Rx Perform Med Rec) 1 each MISCELLANE ONCE PRN PRN Reason: Consult order Pharmacy Consult (Consult Rx Vancomycin Dosing) 1 each MISCELLANE DAILY PRN PRN Reason: Consult order Senna (Sennosides 8.6 Mg Tablet) 17.2 mg PO BEDTIME PRN PRN Reason: Constipation Sodium Chloride (0.9 % Sodium Chloride Flush 3 Ml Syringe) 3 ml IVFLUSH QSHIFT [facility] Last Admin: 07/30/21 08:51 Dose: 3 ml Documented by: CHAKA Labs CBC & Chem 7: 07/30/21 08:13 07/30/21 08:13 Labs: Laboratory Results - last 24 hr 07/29/21 07/30/21 07/30/21 15:27 08:13 08:13 MCV 86.1 MCH 29.3 MCHC 34.0 RDW 13.5 Plt Count 213 MPV 9.4 Immature Gran % (Auto) 0.1 Neut % (Auto) 49.3 Lymph % (Auto) 39.7 [place] % (Auto) 7.1 Eos % (Auto) 3.4 Baso % (Auto) 0.4 Lymph # (Auto) 2.9 [place] # (Auto) 0.5 Eos # (Auto) 0.3 Baso # (Auto) 0.0 Abs Immat Gran (auto) 0.01 Absolute Neuts (auto) 3.6 Absolute Nucleated RBC 0.000 Nucleated RBC % (auto) 0.0 Anion Gap 9 L Estim Creat Clear Calc 109.2 Estimated GFR > 60 Random Glucose 77 Calcium 8.6 D Total Bilirubin 0.5 AST 93 H ALT 27 Alkaline Phosphatase 64 D Total Creatine Kinase 7461 H Total Protein 6.0 L D Albumin 3.6 D Respiratory Panel [place] See Note Adenovirus (Rapid PCR) Not Detected B.pert (TEM-PCR) Not Detected B.parapertussis DNA PCR Not Detected C. pneumoniae DNA (PCR) Not Detected Coronavirus OC43 (PCR) Not Detected Coronavirus HKU1 (PCR) Not Detected Coronavirus 229E (PCR) Not Detected Coronavirus NL63 (PCR) Not Detected Human Metapneumovir PCR Not Detected Influenza A (RT-PCR) Not Detected Influenza B (RT-PCR) Not Detected M. pneumoniae (PCR) Not Detected Parainfluenza 1 (PCR) Not Detected Parainfluenza 2 (PCR) Not Detected Parainfluenza 3 (PCR) Not Detected Parainfluenza 4 (PCR) Not Detected RSV (PCR) Not Detected Entero/Rhino (PCR) Not Detected SARS-CoV-2 RNA (RT-PCR) Not Detected Microbiology Microbiology Results: Microbiology 07/28/21 23:22 Blood Culture - Preliminary Blood - Venous No growth after 24 hours. 07/28/21 23:12 Blood Culture - Preliminary Blood - Venous No growth after 24 hours. Assessment and Plan (1) Altered mental status: Status: Acute (2) Substance abuse: Status: Acute (3) Acute kidney injury: Status: Acute Assessment and Plan: hospital d#3 31yo M with PCP + methamphetamine intoxication admitted with agitated delirium requiring haloperidol, ketamine, and lorazepam found to have rhabdomyolysis + pneumonia # rhabdomyolysis - aggressive fluid hydration to prevent pigment nephropathy, trend CPK # TORSTEN - resolved # pneumonia - likely aspiration, d/c'ed vancomycin as unlikely MRSA, follow BCx, trend PCT; RVP negative # toxic metabolic encephalopathy # polysubstance abuse - due to substance abuse [PCP + methamphetamines] - Psychiatry + Addiction medicine consults - screen HBV/HCV/HIV pending # VTE ppx - SCDs # dispo - anticipate home pending further improvement in CPK Quality Stroke Does the patient have a stroke diagnosis?: No VTE Prior VTE?: No VTE Risk Level:: Medical - low VTE Device Contraindication: N/A - Device Ordered VTE Drug Contraindication: Treatment Not Indicated
--- NOTE | 2021-07-30 11:35 | PC.NURSE ---
pt requesting to leave, stating no one has updated him today. Attempted to update pt, pt refusing to listen. MD at bedside. Pt leaving AMA. paper signed.
--- NOTE | 2021-07-30 11:50 | PM.DS ---
DS: Providers Provider Date of Service: 07/30/21 Date of admission: 07/28/21 23:31 Primary care physician: Unknown Physician Consults: 07/28/21 23:31 Addiction Medicine Routine Consulting Provider: Kaye Katz Reason for consultation: PCP use Consult to Psychiatry Routine Consulting Provider: Psych Covering Reason for consultation: polysubstance abuse; paranoid; agitation 07/29/21 00:18 Consult to Nephrology Routine Consulting Provider: Tr Thomas Reason for consultation: TORSTEN; rhabdo; acidosis DS: Diagnosis Discharge Diagnosis (1) Altered mental status: Status: Acute (2) Substance abuse: Status: Acute (3) Acute kidney injury: Status: Acute (4) PCP intoxication: Status: Acute (5) Toxic encephalopathy: Status: Acute (6) Methamphetamine abuse: Status: Acute (7) Rhabdomyolysis: Status: Acute (8) Pneumonia: Status: Acute (9) Left against medical advice: Status: Acute DS: Summary Hospital Course Hospital Course: from admission H+P by hospitalist León Langley, 07/28/21: 31-year-old male with a past medical history of polysubstance abuse, PCP abuse presented to the hospital with a chief complaint of altered mental status. Most of the history provided by the patient's family. Reportedly patient has been having paranoia; and confusion.? Mentioned that he uses PCP. Denies patient having any suicidal or homicidal ideation. Review of all other systems is negative except mentioned above ER course: Per ER team patient on presentation was agitated; given ketamine, Ativan, Haldol; subsequently patient developed fever; noted to be tachycardic, hypotensive; noted to have mild TORSTEN and rhabdomyolysis; given IV fluids.? Chest x-ray showed pneumonia.? Concern for aspiration.? Given vancomycin and Zosyn.? Admitted for further management. This 31yo M with PCP + methamphetamine intoxication was admitted with agitated delirium requiring haloperidol, ketamine, and lorazepam. He was found to have rhabdomyolysis + pneumonia. He was given aggressive IV fluid hydration to prevent pigment nephropathy. TORSTEN improved with fluid resuscitation. For pneumonia, he was treated with piperacillin/tazobactam for possible aspiration. His mental status cleared and he was counseled to stay away from substances of abuse including PCP and methamphetamines. Unfortunately, he decided to sign out against medical advice on 07/30/21 despite counseling on the need for ongoing IV fluid hydration. Nothing I said would convince him to stay. He was prescribed 5 more days of amoxicillin/clavulanate for pneumonia treatment and was advised to return to the hospital as soon as possible. Screens for HBV, HCV, and HIV are pending at the time of him signing out AMA. Time Spent with Patient Time attestation: Total time spent providing and/or coordinating discharge services: Discharge coordination time: Less than 30 minutes Quality: Stroke Does the patient have a stroke diagnosis?: No Physical Exam Vital Signs: Vital Signs: Last Vital Signs Temp 98.8 F 07/29/21 23:32 Pulse 71 07/30/21 04:00 Resp 16 07/30/21 04:00 BP 101/57 L 07/30/21 04:00 Pulse Ox 97 07/30/21 04:00 Body Mass Index 24.0 See Progress Note from 07/30/21 for details DS: Data Data Completed and Pending Completed studies during hospitalization [Text1]: Laboratory Results WBC 7.3 X10*3/uL (4.8-10.8) 07/30/21 08:13 RBC 3.96 X10*6/uL (4.60-5.80) L 07/30/21 08:13 Hgb 11.6 g/dl (14.0-18.0) L 07/30/21 08:13 Hct 34.1 % (42-52) L 07/30/21 08:13 MCV 86.1 fL (80-98) 07/30/21 08:13 MCH 29.3 pg (27.0-33.0) 07/30/21 08:13 MCHC 34.0 g/dl (31.0-36.0) 07/30/21 08:13 RDW 13.5 % (11.0-16.0) 07/30/21 08:13 Plt Count 213 X10*3/uL (160-400) 07/30/21 08:13 MPV 9.4 fL (9.4-12.4) 07/30/21 08:13 Immature Gran % (Auto) 0.1 % (0.0-0.4) 07/30/21 08:13 Neut % (Auto) 49.3 % (45-73) 07/30/21 08:13 Lymph % (Auto) 39.7 % (20-40) 07/30/21 08:13 [place] % (Auto) 7.1 % (2-11) 07/30/21 08:13 Eos % (Auto) 3.4 % (0-4) 07/30/21 08:13 Baso % (Auto) 0.4 % (0-2) 07/30/21 08:13 Lymph # (Auto) 2.9 X10*3/uL (1.2-4.9) 07/30/21 08:13 [place] # (Auto) 0.5 X10*3/uL (0.1-1.2) 07/30/21 08:13 Eos # (Auto) 0.3 X10*3/uL (0.0-0.4) 07/30/21 08:13 Baso # (Auto) 0.0 X10*3/uL (0.0-0.2) 07/30/21 08:13 Abs Immat Gran (auto) 0.01 X10*3/uL (0.00-0.03) 07/30/21 08:13 Absolute Neuts (auto) 3.6 X10*3/uL (2.0-8.3) 07/30/21 08:13 Absolute Nucleated RBC 0.000 X10*3/uL (0.0-0.012) 07/30/21 08:13 Nucleated RBC % (auto) 0.0 /100WBC (0.0-0.2) 07/30/21 08:13 VBG pH 7.39 (7.32-7.43) 07/28/21 18:34 VBG pCO2 37 mmHg 07/28/21 18:34 VBG pO2 114 mmHg 07/28/21 18:34 VBG HCO3 23 mmol/L (22-26) 07/28/21 18:34 VBG O2 Saturation 99.0 % 07/28/21 18:34 VBG Base Excess -1.4 mmol/L 07/28/21 18:34 Sodium 141 mmol/L (135-145) 07/30/21 08:13 Potassium 4.1 mmol/L (3.3-5.1) 07/30/21 08:13 Chloride 108 mmol/L (96-108) 07/30/21 08:13 Carbon Dioxide 28 mmol/L (22-29) 07/30/21 08:13 Anion Gap 9 (12-20) L 07/30/21 08:13 BUN 4 mg/dL (9-16) L 07/30/21 08:13 Creatinine 0.82 mg/dL (0.5-1.4) 07/30/21 08:13 Estim Creat Clear Calc 109.2 07/30/21 08:13 Estimated GFR > 60 07/30/21 08:13 Random Glucose 77 mg/dL (60-115) 07/30/21 08:13 Lactic Acid 1.8 mmol/L (0.5-2.0) 07/28/21 23:22 Calcium 8.6 mg/dL (8.4-10.2) D 07/30/21 08:13 Magnesium 2.5 mg/dL (1.6-2.6) 07/28/21 17:04 Total Bilirubin 0.5 mg/dL (0.0-1.0) 07/30/21 08:13 AST 93 U/L (5-37) H 07/30/21 08:13 ALT 27 U/L (0-40) 07/30/21 08:13 Alkaline Phosphatase 64 U/L (39-117) D 07/30/21 08:13 Total Creatine Kinase 7461 U/L (38-174) H 07/30/21 08:13 Troponin I High Sens < 3.5 ng/L (<3.5-35.0) 07/28/21 17:04 Total Protein 6.0 g/dL (6.5-8.0) L D 07/30/21 08:13 Albumin 3.6 g/dL (3.5-5.0) D 07/30/21 08:13 Procalcitonin 0.25 ng/mL 07/29/21 07:10 Urine Color YELLOW 07/29/21 00:49 Urine Appearance CLEAR 07/29/21 00:49 Urine pH 6.0 (5.0-8.0) 07/29/21 00:49 Ur Specific [place] 1.020 (1.005-1.025) 07/29/21 00:49 Urine Protein NEG MG/DL (NEG-TRACE) 07/29/21 00:49 Urine Glucose (UA) NEG MG/DL (NEG) 07/29/21 00:49 Urine Ketones NEG MG/DL (NEG) 07/29/21 00:49 Urine Blood 2+ (NEG) H 07/29/21 00:49 Urine Nitrite NEG (NEG) 07/29/21 00:49 Ur Leukocyte Esterase NEG (NEG) 07/29/21 00:49 Urine RBC 10-14 /HPF (0) H 07/29/21 00:49 Urine WBC 1-4 /HPF (0-4) 07/29/21 00:49 Ur Squamous Epith Cells 1+ /LPF 07/29/21 00:49 Urine Bacteria 1+ /LPF 07/29/21 00:49 Salicylates < 5.0 mg/dL (15-30) L 07/28/21 18:24 Urine Opiates Screen Not Detected (Not Detect) 07/28/21 18:24 Urine Fentanyl Screen Not Detected (Not Detect) 07/28/21 18:24 Acetaminophen < 1 mcg/mL (<30) 07/28/21 18:24 Ur Barbiturates Screen Not Detected (Not Detect) 07/28/21 18:24 Ur Phencyclidine Scrn POSITIVE (Not Detect) H 07/28/21 18:24 Ur Amphetamines Screen POSITIVE (Not Detect) H 07/28/21 18:24 U Benzodiazepines Scrn Not Detected (Not Detect) 07/28/21 18:24 Urine Cocaine Screen Not Detected (Not Detect) 07/28/21 18:24 U Marijuana (THC) Screen POSITIVE (Not Detect) H 07/28/21 18:24 Ethyl Alcohol < 10 mg/dL 07/28/21 18:24 Acetone, Qual Negative (Negative) 07/28/21 18:24 Respiratory Panel [place] See Note 07/29/21 15: Adenovirus (Rapid PCR) Not Detected (Not Detect.) 07/29/21 15: B.pert (TEM-PCR) Not Detected (Not Detect.) 07/29/21 15: B.parapertussis DNA PCR Not Detected (Not Detect.) 07/29/21 15: C. pneumoniae DNA (PCR) Not Detected (Not Detect.) 07/29/21 15: Coronavirus OC43 (PCR) Not Detected (Not Detect.) 07/29/21 15: Coronavirus HKU1 (PCR) Not Detected (Not Detect.) 07/29/21 15: Coronavirus 229E (PCR) Not Detected (Not Detect.) 07/29/21 15: COVID-19 ([facility]) Negative (Negative) 07/28/21 18: COVID-19 Clin Com See Note 07/28/21 18: Coronavirus NL63 (PCR) Not Detected (Not Detect.) 07/29/21 15: Human Metapneumovir PCR Not Detected (Not Detect.) 07/29/21 15: Influenza A (RT-PCR) Not Detected (Not Detect.) 07/29/21 15: Influenza B (RT-PCR) Not Detected (Not Detect.) 07/29/21 15: M. pneumoniae (PCR) Not Detected (Not Detect.) 07/29/21 15: Parainfluenza 1 (PCR) Not Detected (Not Detect.) 07/29/21 15: Parainfluenza 2 (PCR) Not Detected (Not Detect.) 07/29/21: Parainfluenza 3 (PCR) Not Detected (Not Detect.) 07/29/21 15: Parainfluenza 4 (PCR) Not Detected (Not Detect.) 07/29/21 15: RSV (PCR) Not Detected (Not Detect.) 07/29/21 15: Entero/Rhino (PCR) Not Detected (Not Detect.) 07/29/21 15: SARS-CoV-2 RNA (RT-PCR) Not Detected (Not Detect.) 07/29/21 15: Impressions Head CT 07/28/21 18:00 IMPRESSION: No acute intracranial pathology. Questionable meningioma in the left posterior fossa, although examination is significantly degraded by motion and this could represent volume averaging. Consider further evaluation with a MR of the brain in a nonemergent setting. Chest X-Ray 07/28/21 22:38 IMPRESSION: Generalized hazy and patchy opacities in the left lung suggesting an infectious/inflammatory process. Discharge Plan Discharge Patient Disposition: Left Against Medical Advice Discharge Diagnosis: Rhabdomyolysis, pneumonia, LEFT AGAINST MEDICAL ADVICE Referrals: Physician,Unknown J [Primary Care Provider] - 1 Week Discharge Medications: New amoxicillin-pot clavulanate 875-125 mg tablet 1 tab PO BID Qty: 10 RF: 0 Discharge Orders: Discharge Order (Routine); Ordered 07/30/21 Ordered By: Ze Cha Diet: advance to usual diet Activity on Discharge: As tolerated Care Plan Goals: health Health Concerns: rhabdomyolysis pneumonia Plan of Treatment: RETURN TO HOSPITAL SOON POSSIBLE Assessment: as above
[2021-08-01 04:24] LABS: HBc Num1 0.14 S/CO (0.00-0.79); HIV AB/AG Nonreactive (Nonreactive); HIV Num 1 0.06 S/CO (0.00-0.99); Hepatitis B Core Antibody Nonreactive (Nonreactive); ~HepC Num1 0.09 S/CO (0.00-0.79); ~Hepatitis C Antibody Nonreactive (Nonreactive)
[2021-08-01 04:35] LABS: HBS Num1 82.12 mIU/mL (0-7.99); HBsAGNum1 0.52 S/CO (0.00-0.99); Hepatitis B Surface Antigen Negative (Negative); ~Hepatitis B Surface Antibody REACTIVE (Nonreactive)
== END 2021-07-30 11:38 | disposition left against medical advice (07) | DRG 351 ==
LOC: HO.ED 18:01 → HO.EDOVER 07-29 00:10
PROVIDERS: Emergency Medicine; Admitting Provider Hospitalist; Emergency Provider Emergency Medicine; Visit Provider Family Medicine
DX: M62.82 Rhabdomyolysis (principal); J69.0 Pneumonitis due to inhalation of food and vomit; G92.8 Other toxic encephalopathy; N17.9 Acute kidney failure, unspecified; F15.10 Other stimulant abuse, uncomplicated; F16.921 Hallucinogen use, unspecified with intoxication with delirium; R00.0 Tachycardia, unspecified; Z20.822 Contact with and (suspected) exposure to COVID-19
CPT/HCPCS: 36415; 70450; 71045; 80048; 80053; 80143; 80179; 80307; 81001; 81003; 82009; 82077; 82550; 82803; 83605; 83735; 84145; 84484; 85025; 86704; 86706; 86803; 87040; 87340; 87389; 87633; 87635; 93005; 99285; J2060; J2543; J3370

== ENCOUNTER 2021-08-02 15:44 | Emergency (ER) | payer OTHER, SELFPAY ==
--- NOTE | ~2021-08-02 | XR_ITS ---
EXAMINATION: XR CHEST CLINICAL INFORMATION: Shortness of breath COMPARISON: Chest x-ray July 28, 2021 TECHNIQUE: Frontal view of the chest was obtained. FINDINGS: Cardiac silhouette is normal in size. Lungs are well aerated. There is no lobar consolidation. Previously present patchy airspace disease as resolved. No pleural effusion or pneumothorax. XR/XR chest 1V IMPRESSION: Interval resolution of patchy bilateral airspace disease.
[2021-08-02 17:25] VITALS: BP 104/65; PULSE 67; RESP 18; TEMP 36.6; O2SAT 99; BMI 22.4
[2021-08-02 19:52] LABS: MANUAL DIFF FLAG NO
[2021-08-02 19:57] LABS: Basophils Percent Auto 0.5 % (0-2); Eosinophils Absolute Auto 0.3 X10*3/uL (0.0-0.4); Eosinophils Percent Auto 3.8 % (0-4); Hematocrit 39.3 % (42-52); Imm Gran Abs Auto 0.02 X10*3/uL (0.00-0.03); Imm Gran Pct Auto 0.3 % (0.0-0.4); Lymphocytes Absolute Auto 3.6 X10*3/uL (1.2-4.9); Lymphocytes Percent Auto 46.5 % (20-40); Mean Corpuscular HGB Conc 33.1 g/dl (31.0-36.0); Mean Corpuscular Volume 87.7 fL (80-98); Mean Platelet Volume 9.4 fL (9.4-12.4); Monocytes Absolute Auto 0.5 X10*3/uL (0.1-1.2); Monocytes Percent Auto 6.4 % (2-11); Neutrophils Absolute Auto 3.3 X10*3/uL (2.0-8.3); Neutrophils Percent Auto 42.5 % (45-73); Platelet Count 341 X10*3/uL (160-400); Red Blood Count 4.48 X10*6/uL (4.60-5.80); Red Cell Distribution Width 13.6 % (11.0-16.0); White Blood Count 7.7 X10*3/uL (4.8-10.8)
[2021-08-02 20:07] LABS: Alanine Aminotransferase 48 U/L (0-40); Albumin Level 4.7 g/dL (3.5-5.0); Alkaline Phosphatase 84 U/L (39-117); Anion Gap 17 (12-20); Aspartate Amino Transferase 38 U/L (5-37); Bilirubin Total 0.2 mg/dL (0.0-1.0); Blood Urea Nitrogen 11 mg/dL (9-16); Calcium 9.3 mg/dL (8.4-10.2); Carbon Dioxide 26 mmol/L (22-29); Chloride 101 mmol/L (96-108); Creatinine Clr Calc Pharmacy 106.5; Estimated Glomerular Filt Rate > 60; Glucose Random 71 mg/dL (60-115); Potassium 3.7 mmol/L (3.3-5.1); Sodium 140 mmol/L (135-145); Total Protein 7.8 g/dL (6.5-8.0)
--- NOTE | 2021-08-02 21:27 | ED.GENADULT ---
HPI - General Adult General Chief complaint: General Medical Stated complaint: abnormal scans Time Seen by Provider: 08/02/21 21:27 Source: patient Mode of arrival: ambulatory Limitations: no limitations History of Present Illness HPI narrative: Patient was admitted on 07/28 for rhabdomyolysis secondary to use of PCP and agitation requiring Haldol ketamine and lorazepam at that time patient's CPK was elevated up to 9900 with TORSTEN with creatinine of 1.6 in the hospital patient renal function improved back to normal loss creatinine was 0.8 patient left against medical advise on 07/30 comes back as at the time of discharge doctor advised him to stay in the hospital patient is feeling better otherwise no muscle pain has occasional cough had antibiotic, his urine is clear feeling much better now drinking lot of water Related Data Previous Rx's Medication Instructions Recorded amoxicillin 875 mg-potassium 1 tab PO BID #10 tab 07/30/21 clavulanate 125 mg tablet Allergies Allergy/AdvReac Type Severity Reaction Status Date / Time No Known Allergies Allergy Verified 08/02/21 17:25 Review of Systems Review of Systems: Yes all other systems are reviewed and are negative [facility] Past Medical History Medical History COVID-19 Pneumonia Rhabdomyolysis Social History Social History Patient Tobacco Use Status: Never used Tobacco Substance Use Type: Marijuana Advance Directives: No Advance Directives Information Provided: No service: No Current occupational status: unemployed Physical Exam Vital Signs: Vital Signs: Last Vital Signs Temp 97.9 F 08/02/21 17:25 Pulse 67 08/02/21 17:25 Resp 18 08/02/21 17:25 BP 104/65 08/02/21 17:25 Pulse Ox 99 08/02/21 17:25 Body Mass Index 22.4 Appearance: Alert. Oriented X3. No acute distress. Eyes: No pallor or icterus ENT: Pharynx normal. Oral Mucosa moist Neck: Normal inspection. Neck supple. CVS: Normal heart rate and rhythm. Pulses normal. Respiratory: No respiratory distress. Equal air entry bilateral, no wheezing/rales/rhonchi Abdomen: Soft and nontender. Bowel sounds are present, no mass palpable, no CVA tenderness Skin: Skin warm and dry. Normal skin color. Normal skin turgor. Extremities: No lower extremity edema. No calf tenderness Neuro: Oriented X 3. Medical Decision Making MDM Narrative Medical decision making narrative: Patient is symptomatic from rhabdomyolysis drinking plenty of fluids labs reviewed urine is negative for RBCs creatinine is 1166. Patient advised to drink plenty of fluids and stop using PCP Lab Data Lab results reviewed: Yes I reviewed the patient's lab results. Result diagrams: 08/02/21 19:49 08/02/21 19:49 Labs: Lab Results 08/02/21 08/02/21 08/02/21 Range/Units 19:49 19:49 21:42 WBC 7.7 (4.8-10.8) X10*3/uL RBC 4.48 L (4.60-5.80) X10*6/uL Hgb 13.0 L (14.0-18.0) g/dl Hct 39.3 L (42-52) % MCV 87.7 (80-98) fL MCH 29.0 (27.0-33.0) pg MCHC 33.1 (31.0-36.0) g/dl RDW 13.6 (11.0-16.0) % Plt Count 341 D (160-400) X10*3/uL MPV 9.4 (9.4-12.4) fL Immature Gran % (Auto) 0.3 (0.0-0.4) % Neut % (Auto) 42.5 L (45-73) % Lymph % (Auto) 46.5 H (20-40) % [place] % (Auto) 6.4 (2-11) % Eos % (Auto) 3.8 (0-4) % Baso % (Auto) 0.5 (0-2) % Lymph # (Auto) 3.6 (1.2-4.9) X10*3/uL [place] # (Auto) 0.5 (0.1-1.2) X10*3/uL Eos # (Auto) 0.3 (0.0-0.4) X10*3/uL Baso # (Auto) 0.0 (0.0-0.2) X10*3/uL Abs Immat Gran (auto) 0.02 (0.00-0.03) X10*3/uL Absolute Neuts (auto) 3.3 (2.0-8.3) X10*3/uL Absolute Nucleated RBC 0.000 (0.0-0.012) X10*3/uL Nucleated RBC % (auto) 0.0 (0.0-0.2) /100WBC Sodium 140 (135-145) mmol/L Potassium 3.7 (3.3-5.1) mmol/L Chloride 101 (96-108) mmol/L Carbon Dioxide 26 (22-29) mmol/L Anion Gap 17 (12-20) BUN 11 D (9-16) mg/dL Creatinine 0.87 (0.5-1.4) mg/dL Estim Creat Clear Calc 106.5 Estimated GFR > 60 Random Glucose 71 (60-115) mg/dL Calcium 9.3 D (8.4-10.2) mg/dL Total Bilirubin 0.2 (0.0-1.0) mg/dL AST 38 H D (5-37) U/L ALT 48 H (0-40) U/L Alkaline Phosphatase 84 D (39-117) U/L Total Creatine Kinase 1166 H D (38-174) U/L Total Protein 7.8 D (6.5-8.0) g/dL Albumin 4.7 D (3.5-5.0) g/dL Urine Color YELLOW Urine Appearance HAZY Urine pH 7.0 (5.0-8.0) Ur Specific [place] 1.015 (1.005-1.025) Urine Protein TRACE (NEG-TRACE) MG/DL Urine Glucose (UA) NEG (NEG) MG/DL Urine Ketones NEG (NEG) MG/DL Urine Blood NEG (NEG) Urine Nitrite NEG (NEG) Ur Leukocyte Esterase NEG (NEG) Discharge Plan Discharge Clinical Impression: History of rhabdomyolysis Patient Disposition: Home, Self-Care Instructions: Rhabdomyolysis (ED) Additional Instructions: Your rhabdomyolysis has improved , back to normal drink plenty of fluids. stop Using PCP Prescriptions: No Action amoxicillin-pot clavulanate 875-125 mg tablet 1 tab PO BID Qty: 10 RF: 0 Interventions: ED Discharge Assessment Last Done: 08/02/21 22:46 Discharge Date/Time: 08/02/21 22:47
[2021-08-02 21:58] LABS: Appearance Urine HAZY; Color Urine YELLOW; Glucose Urine UA NEG (NEG); Leukocyte Esterase Urine NEG (NEG); Nitrite Urine NEG (NEG); Specific Gravity - Urine 1.015 (1.005-1.025); Urine Blood NEG (NEG); Urine Ketones NEG (NEG); Urine Protein TRACE MG/DL (NEG-TRACE)
== END 2021-08-02 22:47 | disposition home or self-care (01) ==
PROVIDERS: Emergency Provider Internal Medicine; PCP Internal Medicine
DX: M62.82 Rhabdomyolysis (principal)
CPT/HCPCS: 36415; 71045; 80053; 81003; 82550; 85025; 99283

== ENCOUNTER 2022-12-19 00:54 | Emergency (ER) | payer OTHER, SELFPAY ==
[2022-12-19 01:02] VITALS: BP 135/72; PULSE 94; RESP 16; O2SAT 100; BMI 24.1
[2022-12-19 01:06] VITALS: TEMP 36.3
--- NOTE | 2022-12-19 01:07 | PC.NURSE ---
pt biba.pt unable to remember events prior to being brought to ed. pt calm and cooperative. pt verbalizes N/V. pt placed on hotel administrative assistant. security at bedside to secure belongings. pt belongings brought to decon by security
[2022-12-19 01:10] VITALS: BP 138/81; PULSE 116; RESP 23; O2SAT 97
--- NOTE | 2022-12-19 01:36 | ED.OVERDOSE ---
HPI - Overdose General Chief Complaint: Overdose Stated Complaint: overdose Time Seen by Provider: 12/19/22 01:22 Source: patient Mode of arrival: EMS History of Present Illness HPI Narrative: 32-year-old male who states that he smokes crack cocaine, did the same this evening, has no suicidal or homicidal ideations and is declining detox at this time. As per EMS patient was found on responsive an apneic and received 12 mg inhaled Narcan by PD/FD prior to EMS arrival. EMS had to provide assisted ventilations with BVM but arrives alert. Related Data Previous Rx's Medication Instructions Recorded amoxicillin 875 mg-potassium 1 tab PO BID #10 tabs 07/30/21 clavulanate 125 mg tablet Allergies Allergy/AdvReac Type Severity Reaction Status Date / Time No Known Allergies Allergy Verified 08/02/21 17:25 Review of Systems Review of Systems: Pertinent positives and negatives as stated in HPI [facility] Past Medical History Source: nursing notes reviewed Medical History COVID-19 Pneumonia Rhabdomyolysis Social History Social History Patient Tobacco Use Status: Never used Tobacco Smoked in Last 30 Days: Yes Use of substances other than those prescribed or required for medical reasons: Yes Substance Use Type: Hallucinogens Advance Directives: No Advance Directives Information Provided: Yes service: No Current occupational status: unemployed Physical Exam Vital Signs: Vital Signs: Last Vital Signs Temp 97.4 F 12/19/22 01:06 Pulse 116 H 12/19/22 01:10 Resp 23 H 12/19/22 01:10 BP 138/81 12/19/22 01:10 Pulse Ox 97 12/19/22 01:10 O2 Del Method 12/19/22 01:10 BMI result Body Mass Index 24.1 VITAL SIGNS: Reviewed. GENERAL: Well developed, well nourished, in no acute distress. HEAD: Normocephalic/atraumatic EYES: PERRLA, EOMI LUNGS: Normal breath sounds. No adventitious sounds or accessory muscle use. SpO2<97> CARDIOVASCULAR: Regular rate and rhythm without noted murmurs ABDOMEN: Soft, non-tender, non-distended with bowel sounds. MUSCULOSKELETAL: No tenderness, deformities, or effusions noted on gross inspection. EXTREMITIES: No cyanosis, clubbing or edema. SKIN: Inspection of the skin reveals no rashes NEUROLOGIC: Alert and oriented x 3. Strength and sensation to light touch were grossly intact x 4. Medical Decision Making Medical Decision Making MDM Narrative: 32-year-old male with accidental overdose, he does not want any evaluation or detox at this time and wishes to leave and has a safe ride with his mother. He is observed for 2 hours and discharged with home Narcan. Differential Diagnosis Please see the discussion above External Record Review External record reviewed: Prior outpatient labs Critical Care Time Critical Care Time Critical Care Time: Yes Total Critical Care Time: 30 Attestation: I personally attest to this time spent taking care of the patient. Discharge Plan Discharge Clinical Impression: Overdose, Crack cocaine use Patient Disposition: Home, Self-Care Instructions: Cocaine Abuse (ED), Adult Overdose (ED) Additional Instructions: 1. Do not hesitate to return to the emergency room for any worsening of symptoms. Prescriptions: No Action amoxicillin-pot clavulanate 875-125 mg tablet 1 tab PO BID Qty: 10 0RF Referrals: Lou Kerr MD [Primary Care Provider] - Interventions: [place]-Suicide Risk Severity Scale Last Done: 12/19/22 01:11
--- NOTE | 2022-12-19 04:22 | PC.NURSE ---
late entry-pt up for discharge. pt awaiting ride. pt okay to stay in room while waiting for ride per dietetic intern
[2022-12-19 05:45] VITALS: BP 134/65; PULSE 93; RESP 14; TEMP 36.4; O2SAT 96
[2022-12-19] MEDS: Naloxone HCl Nasal TAKE HOME 4 MG SPRAY NOSTRILALT (06:26)
--- NOTE | 2022-12-19 06:27 | PC.NURSE ---
pt provided with narcan take home dose. pt ambulates independently. this rn brought to decon to gather belongings. pt provided with discharge packet. pt verbalizes understanding of discharge plan
== END 2022-12-19 06:28 | disposition home or self-care (01) ==
PROVIDERS: Emergency Provider Student in an Organized Health Care Education/Training Program; PCP Internal Medicine
DX: T40.5X1A Poisoning by cocaine, accidental (unintentional), initial encounter (principal); Y92.9 Unspecified place or not applicable; Z71.51 Drug abuse counseling and surveillance of drug abuser
CPT/HCPCS: 99283; 99284

== ENCOUNTER 2022-12-28 12:19 | Outpatient (REF) | payer OTHER, SELFPAY ==
[2022-12-28 14:54] LABS: Alanine Aminotransferase 24 U/L (0-40); Albumin Level 4.6 g/dL (3.5-5.0); Alkaline Phosphatase 114 U/L (39-117); Anion Gap 11 (12-20); Aspartate Amino Transferase 17 U/L (5-37); Bilirubin Total 0.2 mg/dL (0.0-1.0); Blood Urea Nitrogen 13 mg/dL (9-16); Calcium 9.5 mg/dL (8.4-10.2); Carbon Dioxide 28 mmol/L (22-29); Chloride 103 mmol/L (96-108); Estimated Glomerular Filt Rate > 60; Glucose Random 122 mg/dL (60-115); Potassium 3.6 mmol/L (3.3-5.1); Sodium 138 mmol/L (135-145); Total Protein 7.5 g/dL (6.5-8.0)
[2022-12-28 15:55] LABS: CT PCR NOT DETECTED (Not Detect.); NG PCR NOT DETECTED (Not Detect.)
[2022-12-29 08:07] LABS: HBS Num1 93.51 mIU/mL (0-7.99); HBc Num1 0.19 S/CO (0.00-0.79); HBsAGNum1 0.33 S/CO (0.00-0.99); HIV AB/AG Nonreactive (Nonreactive); HIV Num 1 0.04 S/CO (0.00-0.99); Hepatitis B Core Antibody Nonreactive (Nonreactive); Hepatitis B Surface Antigen Negative (Negative); ~HepC Num1 0.15 S/CO (0.00-0.79); ~Hepatitis A Antibody IgM Nonreactive (Nonreactive); ~Hepatitis B Surface Antibody REACTIVE (Nonreactive); ~Hepatitis C Antibody Nonreactive (Nonreactive)
== END 2022-12-28 12:20 | disposition home or self-care (01) ==
LOC: HO.10HDL 12:19
PROVIDERS: Visit Provider Internal Medicine
DX: Z00.00 Encounter for general adult medical examination without abnormal findings (principal); Z11.4 Encounter for screening for human immunodeficiency virus [HIV]; Z11.3 Encounter for screening for infections with a predominantly sexual mode of transmission; R07.89 Other chest pain; F12.10 Cannabis abuse, uncomplicated; F14.288 Cocaine dependence with other cocaine-induced disorder
CPT/HCPCS: 0353U; 80053; 86704; 86706; 86709; 86803; 87340; 87389

== ENCOUNTER 2023-02-15 07:38 | Emergency (ER) | payer OTHER, SELFPAY ==
[2023-02-15 07:42] VITALS: BP 155/91; PULSE 106; RESP 16; TEMP 36.9; O2SAT 98; BMI 22.5
--- NOTE | 2023-02-15 08:43 | ED_ITS ---
HPI - Male Genitourinary General Chief complaint: Urogenital-Male Stated complaint: burning upon urination pain Time Seen by Provider: 02/15/23 08:09 Source: patient Mode of arrival: ambulatory Limitations: no limitations History of Present Illness HPI Narrative: This is a 32-year-old male who is healthy who presents to the ER with complaints of penile discharge and dysuria for the last 3 days. Patient reports he had sexual intercourse which is unproductive with a new male partner. He denies any associated testicular pain, testicular swelling, abdominal pain, fever or vomiting. No skin rash. Related Data Previous Rx's Medication Instructions Recorded amoxicillin 875 mg-potassium 1 tab PO BID #10 tabs 07/30/21 clavulanate 125 mg tablet doxycycline monohydrate 100 mg 100 mg PO BID #20 caps 02/15/23 capsule Allergies Allergy/AdvReac Type Severity Reaction Status Date / Time No Known Allergies Allergy Verified 08/02/21 17:25 Review of Systems Review of Systems: Yes all other systems are reviewed and are negative Constitutional: Constitutional: Reports no additional constitutional complaints, Denies body ache(s), Denies chills, Denies fever(s), Denies headac he(s) and Denies weakness Eyes: Eyes: Reports no additional eye complaints and Denies change in vision ENT: Reports system reviewed and no additional complaints, except as documented, Denies dizziness, Denies headache(s), Denies nasal congestion, Denies nasal discharge and Denies neck pain Cardiovascular: Cardiovascular: Reports no additional cardiovascular complaints, Denies chest pain, Denies leg edema and Denies dyspnea Respiratory: Respiratory: Reports no additional respiratory complaints, Denies cough and Denies dyspnea Gastrointestinal: Gastrointestinal: Reports no additional gastrointestinal complaints, Denies abdominal pain, Denies diarrhea, Denies nausea and Denies vomiting Genitourinary: Genitourinary: Reports dysuria, Reports penile discharge, Denies testicular mass, Denies testicular pain and Denies urinary incontinence Musculoskeletal: Musculoskeletal: Reports no additional musculoskeletal complaints, Denies back pain, Denies arthralgias, Denies joint swelling, Denies neck pain, Denies numbness and Denies tingling Integumentary/Breasts: Skin/Breast: Reports system reviewed and no additional complaints, except as docu and Denies rash Neurologic: Reports system reviewed and no additional complaints, except as documented, Denies Abnormal speech present, Denies dizziness, Denies headache(s), Denies numbness, Denies tingling and Denies weakness PMFSH Past Medical History Attestation statement: The following information was validated with the patient. Source: old records reviewed and nursing notes reviewed Medical History COVID-19 Pneumonia Rhabdomyolysis Social History Social History Patient Tobacco Use Status: Never used Tobacco Substance Use Type: Hallucinogens Advance Directives: Yes Advance Directives on File: Yes Advance Directives Date on File: 08/01/21 service: No Current occupational status: unemployed Physical Exam Vital Signs: Vital Signs: Last Vital Signs Temp 98.4 F 02/15/23 07:42 Pulse 106 H 02/15/23 07:42 Resp 16 02/15/23 07:42 BP 155/91 H 02/15/23 07:42 Pulse Ox 98 02/15/23 07:42 O2 Del Method Room Air 02/15/23 07:42 BMI result Body Mass Index 22.5 Const: General: cooperative, healthy appearing, comfortable and no acute distress Orientation/consciousness: patient oriented x3 Limitations: no limitations HEENT: Head: Yes normal to inspection Ears: hearing grossly normal bilaterally General nose exam: Normal external nose present Face and sinus: Yes normal facial exam Mouth: Normal oral and palatal mucosa present Throat: Yes posterior oropharynx normal Eyes: General: appearance normal, both eyes and all related structures Pupils: Equal, round and reactive pupils present Neck: Neck: Yes normal visual inspection Chest: Chest palpation & inspection: normal inspection of the chest Resp: Effort & Inspection: normal respiratory effort Auscultation: clear to auscultation bilaterally Cardio: Rate: regular rate Rhythm: regular rhythm Peripheral pulses: Peripheral pulses 2+ throughout GI: Inspection: Yes normal to inspection Palpation (GI): Soft to palpation and nontender Auscultation: normal bowel sounds : 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, penile discharges present Meatus: meatus normal Scrotum: scrotum normal Testes: Testes normal, no testicular mass and no testicular swelling Back/Spine/Pelvis: Thoracic/Lumbar Spine: thoracic and lumbar spine normal to inspection Skin: General skin exam: no rashes or lesions noted Neuro: General: patient oriented x3, no focal motor deficits and normal sensation to monofilament Cranial nerves: Yes Equal, round and reactive pupi ls present Cognition (Neuro): normal cognition Speech: No Abnormal speech present Gait exam (Neuro): Normal gait present Motor exam (neuro): 5/5 motor strength present throughout Extrem: General: Yes normal to inspection Medications Administered Discontinued Medications Generic Name Dose Route Start Last Admin Trade Name Florentin PRN Reason Stop Dose Admin Ceftriaxone Sodium 500 mg/ 0 mg 02/15/23 08:37 02/15/23 08:49 Lidocaine HCl 1 ml IM 02/15/23 08:38 1 kit ONCE ONE Administration Medical Decision Making Medical Decision Making [facility] Narrative: 32-year-old male here with penile discharge and dysuria after recent unprotected sex with a new sexual partner. Will obtain UA, CT NG patient will be treated with ceftriaxone 500 mg IM and sent home with course of doxycycline. Reviewed worrisome signs and symptoms and when to return to the emergency room. Comfortable plan for discharge home. Differential Diagnosis Differential Diagnoses: The differential diagnosis associated with the presentation includes UTI, STI Lab Data [facility] Lab Attestation statement: I reviewed the patient's lab results. Labs: Lab Results 02/15/23 Range/Units 08:47 Urine Color Yellow Urine Appearance Cloudy Urine pH 6.0 (5.0-9.0) Ur Specific [place] >= 1.030 H (1.005-1.025) Urine Protein 30 (1+) H (Neg-Trace) mg/dL Urine Glucose (UA) Negative (Negative) mg/dL Urine Ketones 40 (Negative) mg/dL Urine Blood Negative (Negative) Urine Nitrite Negative (Negative) Ur Leukocyte Esterase Moderate (2+) H (Negative) Urine RBC 0-2 (0-2) /HPF Urine WBC >50 H (0-5) /HPF Ur Squamous Epith Cells 0-2 (0-2) /HPF Urine Bacteria None Seen (None Seen) Hyaline Casts 0-2 (0-2) /LPF Discharge Plan Discharge Clinical Impression: Concern about STD in male without diagnosis Patient Disposition: Home, Self-Care Instructions: Sexually Transmitted Diseases (ED) Additional Instructions: we send testing for gonorrhea and chlamydia these results will take several days to come back we will call you if they are positive your being treated prophylactically with both an injection of antibiotics and a prescription for oral antibiotic Prescriptions: New doxycycline monohydrate 100 mg capsule 100 mg PO BID Qty: 20 0RF No Action amoxicillin-pot clavulanate 875-125 mg tablet 1 tab PO BID Qty: 10 0RF Referrals: Lou Kerr MD [Primary Care Provider] - 1 week ( as needed) Interventions: ED Discharge Assessment Last Done: 02/15/23 08:53 Discharge Date/Time: 02/15/23 08:54
[2023-02-15] MEDS: cefTRIAXone sodium 500 MG, Lidocaine HCl 1 % MPF 1 ML IM (08:49)
[2023-02-15 08:55] LABS: Appearance Urine Cloudy; Color Urine Yellow; Glucose Urine UA Negative (Negative); Leukocyte Esterase Urine Moderate (2+) (Negative); Nitrite Urine Negative (Negative); Specific Gravity - Urine >= 1.030 (1.005-1.025); UMIC TRIGGER UACC YES; Urine Blood Negative (Negative); Urine Ketones 40 mg/dL (Negative); Urine Protein 30 (1+) mg/dL (Neg-Trace)
[2023-02-15 08:57] LABS: Bacteria Urine None Seen (None Seen); Hyaline Casts Urine 0-2 /LPF (0-2); RBC Urine 0-2 /HPF (0-2); Squamous Epithelial Cell Urine 0-2 /HPF (0-2); UACC Culture Trigger YES; WBC Urine >50 /HPF (0-5)
[2023-02-15 10:40] LABS: CT PCR NOT DETECTED (Not Detect.); NG PCR DETECTED (Not Detect.)
== END 2023-02-15 08:54 | disposition home or self-care (01) ==
PROVIDERS: Emergency Provider Emergency Medicine; PCP Internal Medicine
DX: A54.09 Other gonococcal infection of lower genitourinary tract (principal); R30.0 Dysuria; R36.9 Urethral discharge, unspecified; Z20.2 Contact with and (suspected) exposure to infections with a predominantly sexual mode of transmission
CPT/HCPCS: 0353U; 81001; 87086; 96372; 99282; 99284; J0696